=== PATIENT | male | born 1965 | race Caucasian/White ===

== ENCOUNTER 2016-07-16 15:04 | Emergency (ER) | payer SELFPAY ==
[2016-07-16 15:15] VITALS: BP 131/78; PULSE 66; RESP 20; TEMP 98
--- NOTE | 2016-07-16 15:36 | ED ---
General Adult HPI - General Chief complaint: Back Pain/Injury Stated complaint: back pain Time Seen by Provider: 07/16/16 15:18 Source: patient, RN notes reviewed Mode of arrival: ambulatory Limitations: no limitations - History of Present Illness Initial comments: Chief complaint and history of present illness this is a 50-year-old male with chronic back pain. The patient is scheduled to see a new chronic pain management doctor in 8 days. Patient reports she sometimes needs one to 2 [place] per day because of chronic back pain, degenerative disc disease. No recent falls. The patient ran out of his [place] 3 days ago. - Related Data Previous Rx's Medication Instructions Recorded Hydrocodone/Acetaminophen [[place] 1 each PO Q6HR PRN #15 tab 07/16/16 5-325] Allergies Allergy/AdvReac Type Severity Reaction Status Date / Time NSAIDS (Non-Steroidal Allergy Unknown Verified 07/16/16 15:15 Anti-Inflamma Review of Systems ROS Statement: Those systems with pertinent positive or pertinent negative responses have been documented in the HPI. Review of systems no visual acuity no headache no stiff neck no chest pain or shortness of breath no GI/ problems. No foot drop. No trouble urinating or controlling bowel movements. All systems otherwise reviewed are negative. Past medical problems significant for hypertension, hyperlipidemia, previous NV approximately one year ago. Also chronic back pain degenerative disc disease. Patient had bypass surgery and AICD placed. Family history no drug ALLERGIES to nonsteroidals cause heart flutter. Patient stopped smoking one year ago. ROS Other: All systems not noted in ROS Statement are negative. Past Medical History Past Medical History: Coronary Artery Disease (CAD), Chest Pain / Angina, Hyperlipidemia, Hypertension, Myocardial Infarction (NV) Additional Past Medical History / Comment(s): back pain, DDD History of Any Multi-Drug Resistant Organisms: None Reported Past Surgical History: AICD, Coronary Bypass/CABG Past Psychological History: No Psychological Hx Reported Smoking Status: Former smoker Past Alcohol Use History: None Reported Past Drug Use History: None Reported General Exam - General Exam Comments Initial Comments: General: The patient is awake and alert, complains of chronic back pain. Made worse by bad weather. Vital signs temp 98.0 pulse 66 referred rate 20 pulse ox 99% room air blood pressure 131/78. Mildly elevated systolic noted patient is in pain. Following up with his family physician and chronic pain doctor within the week.. Eye: Pupils are equal, , extra-ocular movements are intact; there is normal conjunctiva bilaterally. No signs of icterus. Ears, nose, mouth and throat: There are moist mucous membranes Neck: The neck is supple, there is no tenderness Cardiovascular: There is a regular rate and rhythm. No murmur, rub or gallop is appreciated. Respiratory: Lungs are clear to auscultation, respirations are non-labored, breath sounds are equal. No wheezes, stridor, rales, or rhonchi. Gastrointestinal: Soft, non-distended, non-tender abdomen without masses or organomegaly noted. There is no rebound or guarding present. No CVA tenderness. Bowel sounds are unremarkable. Back: Chronic musculoskeletal discomfort. No lumbar radiculopathy radiating to the legs. No complaint of any foot drop, no difficulty urinating or bowel movements. Good muscle tone. Musculoskeletal: Normal ROM, no tenderness, There is no pedal edema. There is no calf tenderness or swelling. Sensation intact. Pulses equal bilaterally 2+. Neurological: No neuro deficit. No focal or lateralizing findings. Skin: Skin is warm and dry and no rashes or lesions are noted. Limitations: no limitations Course Vital Signs 07/16/16 15:12 Temperature 98.0 F Pulse Rate 66 Respiratory 20 Rate Blood Pressure 131/78 O2 Sat by Pulse 99 Oximetry Medical Decision Making - Medical Decision Making Patient will be following up with his new chronic pain management doctor. Disposition Clinical Impression: Acute exacerbation of chronic low back pain Disposition: HOME SELF-CARE Condition: Stable Instructions: Acute Low Back Pain (ED), Chronic Back Pain (ED) Additional Instructions: Take medications as directed. Follow-up with family physician. Follow-up with your new chronic pain management doctor Prescriptions: Hydrocodone/Acetaminophen [[place] 5-325] 1 each PO Q6HR PRN #15 tab PRN Reason: Pain Time of Disposition: 15:35
== END 2016-07-16 15:50 | disposition home or self-care (01) ==
LOC: EC 15:04
DX: G89.29 Other chronic pain (principal); M54.5 Low back pain; Z87.891 Personal history of nicotine dependence; Z88.6 Allergy status to analgesic agent
CPT/HCPCS: 99283

== ENCOUNTER → 2024-06-26 | Outpatient (CLI) | payer MEDICARE, OTHER ==
--- NOTE | 2024-06-26 11:23 | XR ---
EXAMINATION TYPE: XR lumbar spine 2 or 3V DATE OF EXAM: 06/26/2024 10:51 AM COMPARISON: None. CLINICAL INDICATION: Male, 58 years old with history of [id number] BACK PAIN, pain TECHNIQUE: Frontal and lateral oblique images of the lumbar spine are obtained. FINDINGS: There are 5 lumbar type vertebral bodies identified. The lumbar spine shows grade 1 anter olisthesis L4 on L5. Vertebral body heights and disk space heights are within normal limits. Mild-to- moderate overlying arterial vascular calcification is present. IMPRESSION: As above. [facility], , 06/26/2024 11:21 AM
--- NOTE | 2024-06-26 11:24 | XR ---
EXAMINATION TYPE: XR thoracic spine 2V DATE OF EXAM: 06/26/2024 10:51 AM COMPARISON: None. CLINICAL INDICATION: Male, 58 years old with history of [id number] BACK PAIN, pain TECHNIQUE: Frontal and lateral view of thoracic spine are obtained. FINDINGS: Thoracic spine show satisfactory alignment without evidence of acute fracture or dislocatio n. Vertebral body heights and disc space heights are preserved. Overlying sternal wires along with c ardiac pacemaker/defibrillator leads is noted. IMPRESSION: As above. [facility], , 06/26/2024 11:22 AM
--- NOTE | 2024-06-26 11:26 | XR ---
EXAMINATION TYPE: XR cervical spine limited DATE OF EXAM: 06/26/2024 10:51 AM COMPARISON: None. CLINICAL INDICATION: Male, 58 years old with history of [id number] BACK PAIN, pain TECHNIQUE: Frontal, lateral, and open mouth view of the cervical spine are obtained. FINDINGS: The cervical spine is visualized in its entirety from C1 thru the top of T1 level, it is s traightened in alignment. There is slight grade 1 anterolisthesis C3 on C4. The pre-vertebral soft ti ssue appears within normal limits. The C1-C2 articulation is within normal limits on the open mouth view. Vertebral body heights are maintained. There is moderate disc space narrowing at C5-C6 and C6-C 7 levels. There is mild disc space narrowing at C4-C5 level. Overlying soft tissue is unremarkable. IMPRESSION: As above. [facility], , 06/26/2024 11:23 AM
== END | disposition home or self-care (01) ==
LOC: RADXRYALE 10:23
PROVIDERS: ATTEND Nurse Practitioner
DX: M43.16 Spondylolisthesis, lumbar region (principal); M43.12 Spondylolisthesis, cervical region; M50.122 Cervical disc disorder at C5-C6 level with radiculopathy
CPT/HCPCS: 72040; 72070; 72100